=== PATIENT | female | born 1935 | race Caucasian/White ===

== ENCOUNTER 2019-04-29 17:52 | Inpatient (IN) | payer MEDICARE, OTHER ==
[~2019-04-29] VITALS: Ht 165.1 cm; Wt 54.4 kg
[2019-04-29 18:32] LABS: BASO # 0.1 (0.0-0.2); BASO % 0.8 % (0.0-2.0); EOS # 0.3 (0.0-0.7); EOS % 3.2 % (0-4.0); GRAN # 6.6 (1.4-6.5); GRAN % 76.3 % (42.2-75.2); HEMOGLOBIN 11.2 g/dl (12.5-16.0); LYMPH # 1.1 (1.2-3.4); LYMPH % 12.9 % (20.0-51.0); MEAN CELL VOLUME 102 fl (80.0-100.0); MEAN CORPUSCULAR HEMOGLOBIN 34 pg (27.0-31.0); MEAN CORPUSCULAR HGB CONC 33 g/dl (33.0-37.0); MONO # 0.5 (0.1-0.6); PLATELET COUNT 153 K/mm3 (130-400); REDCELL DISTRIBUTION WIDTH-CV 13.2 % (11.5-14.5)
[2019-04-29 18:32] LABS: ALBUMIN 3.6 gm/dL (3.5-5.0); BILIRUBIN,TOTAL 0.4 mg/dL (0.0-1.0); CALCIUM 8.6 mg/dL (8.4-10.2); CREATININE, serum 1.14 (0.52-1.25); POTASSIUM 4.1 mmol/L (3.4-5.0); TOTAL PROTEIN 6.4 gm/dL (6.4-8.2)
[2019-04-29 18:35] LABS: HEMATOCRIT 33.7 % (37.0-47.0)
[2019-04-29 20:48] LABS: COLLECTION METHOD CATHETER
[2019-04-29] MEDS ORDERED: RT SPIRIVA18 MCG IH (20:52)
[2019-04-29 20:53] LABS: MUCOUS Present /lpf; PH 5 (5-8); SQUAMOUS EPITHELIAL 0-2 /hpf; URINE APPEARANCE Clear; URINE BACTERIA None Seen /hpf; URINE BILIRUBIN Negative (NEGATIVE); URINE BLOOD Negative (NEGATIVE); URINE COLOR Yellow; URINE GLUCOSE Negative (NEGATIVE); URINE KETONE Trace (NEGATIVE); URINE LEUKOCYTE ESTERASE Negative (NEGATIVE); URINE NITRATE Negative (NEGATIVE); URINE PROTEIN(semi-quant) Negative (NEGATIVE); URINE RBC 0-2 /hpf; URINE UROBILINOGEN Negative (NEGATIVE)
[2019-04-29] MEDS ORDERED: RT ALBUTER2.5 MG/0.5 IH (20:53)
[2019-04-29] MEDS ORDERED: NAMENDA 10MG TA10 MG PO (20:54)
[2019-04-29] MEDS ORDERED: PLAVIX 75MG TAB75 MG PO (20:54)
[2019-04-29] MEDS ORDERED: KAPSPARGO SPRIN25 MG PO (20:54)
[2019-04-29] MEDS ORDERED: CRESTOR20 MG PO (20:55)
[2019-04-29] MEDS ORDERED: ARICEPT10 MG PO (20:55)
[2019-04-29] MEDS ORDERED: ARICEPT ODT10 MG PO (20:55)
[2019-04-29] MEDS ORDERED: CELEBREX 200MG200 MG PO (20:56)
[2019-04-29] MEDS ORDERED: NITROSTAT0.4 MG/TAB SL (20:57)
--- NOTE | 2019-04-29 21:50 | NUR ---
RECEIVED FROM ED PER CART, 83 Y/O FEMALE WITH FRACTURED LEFT HIP. IS TEARFUL AND ASKING WHERE HER IS. IV SITE TO LEFT AC WITHOUT REDNESS OR SWELLING. DOES NOT KNOW WHERE SHE IS. LOMELI TO BSD WITH YELLOW URINE. TEDS AND SCDS PLACED ON PATIENT.
[2019-04-29 22:01] VITALS: BP 122/82; PULSE 71; TEMP 97.6
[2019-04-29] MEDS ORDERED: LOPRESSOR 225 MG/TAB PO (22:30)
--- NOTE | 2019-04-29 22:35 | NUR ---
MEDICATED WITH MORPHINE 2MG IVP FOR PAIN TO LEFT HIP. PATIENT REPEATS QUESTIONS OF WHERE SHE IS, WHERE HER IS AND IF SHE CAN GET UP TO URINATE. DOES NOT REORIENT WELL, ESPECIALLY REGARDING HER LOMELI CATHETER. BED ALARM ON, WILL MONITOR FOR CHANGES.
[2019-04-30] VITALS (12 sets, daily range): BP systolic 98–135; BP diastolic 49–74; PULSE 66–87; TEMP 97.4–98.4
--- NOTE | 2019-04-30 00:30 | NUR ---
LEFT AC IV SITE CONTINUES TO OCCLUDE WITH PATIENT BENDING HER ARM. RESTARTED NEW IV SITE TO LEFT FOREARM WITH #20G INSYTE ON FIRST ATTEMPT. IVF CONNECTED TO NEW SITE AND INFUSING WITHOUT REDNESS OR SWELLING. MEDICATED WITH IV MORPHINE 2MG AT THIS TIME.
--- NOTE | 2019-04-30 02:12 | NUR ---
PATIENT TEARFUL, THINKS SHE NEEDS TO GET UP TO URINATE. HAS PAIN TO LEFT HIP WITH MOVEMENT, MEDICATED WITH IV MORPHINE 2MG NOW. REASSURED PATIENT THAT HER IS AT HOME AND WILL BE BACK IN THE MORNING TO SEE HER.
--- NOTE | 2019-04-30 04:00 | NUR ---
PATIENT SNORING AT THIS TIME. WILL WAIT FOR ATIVAN IF PATIENT BECOMES ANXIOUS.
--- NOTE | 2019-04-30 05:55 | NUR ---
PATIENT HAD LAB WORK DRAWN, BECAME ANXIOUS ABOUT WHERE SHE WAS AND WHERE HER WAS. ATIVAN GIVEN AT THIS TIME.
[2019-04-30 06:59] LABS: ALBUMIN 3.3 gm/dL (3.5-5.0); BILIRUBIN,TOTAL 0.3 mg/dL (0.0-1.0); CALCIUM 8.3 mg/dL (8.4-10.2); CREATININE, serum 1.01 (0.52-1.25); POTASSIUM 4.3 mmol/L (3.4-5.0); TOTAL PROTEIN 5.9 gm/dL (6.4-8.2)
[2019-04-30 08:08] LABS: BASO % 0.6 % (0.0-2.0); EOS # 0.1 (0.0-0.7); EOS % 1.6 % (0-4.0); GRAN # 5.1 (1.4-6.5); GRAN % 72.6 % (42.2-75.2); LYMPH % 14.3 % (20.0-51.0); MEAN CORPUSCULAR HGB CONC 32 g/dl (33.0-37.0); MEAN PLATELET VOLUME 10.1 fl (7.4-10.4); MONO # 0.8 (0.1-0.6); MONO % 10.6 % (1.7-9.3); PLATELET COUNT 140 K/mm3 (130-400); RED BLOOD COUNT 2.49 M/mm3 (4.10-5.30); REDCELL DISTRIBUTION WIDTH-CV 13.2 % (11.5-14.5)
[2019-04-30 08:22] LABS: HEMATOCRIT 26.7 % (37.0-47.0); HEMOGLOBIN 8.4 g/dl (12.5-16.0); MEAN CELL VOLUME 107 fl (80.0-100.0); MEAN CORPUSCULAR HEMOGLOBIN 34 pg (27.0-31.0)
--- NOTE | 2019-04-30 10:00 | NUR ---
Patient alert, oriented x1. Unable to comprehend questions asked. LLE with pulses intact, externally rotated. C/o pain when LLE moved. Able to feel sensation to LLE. No other s/s pain.
--- NOTE | 2019-04-30 11:35 | NUR ---
Patient to surgery with surgical staff at this time.
--- NOTE | 2019-04-30 13:55 | NUR ---
MEREDITH met with the patient's , Adrian to complete initial assessment. The patient was in surgery. The patient and her live in [place]. The patient has a cane and before this hospitalization the patient was independent with ADLs. The patient's PCP is Dr. Padron in [place] and patient receives medications from [facility] or [facility] with no difficulties. The patient does not have advanced directives in the EMR but Adrian reports they are completed and provided a copy to hospital staff. The patient may be needing care home stay. MEREDITH provided Medicare.gov's list of SNFs. The patient's chose 1)[facility] 2) [facility] in [place]. The patient's signed the patient choice form and placed in the chart. MEREDITH faxed referrals to both facilities. professional services consultant will continue to follow.
[2019-04-30 14:51] LABS: HEMATOCRIT 28.1 % (37.0-47.0); HEMOGLOBIN 8.9 g/dl (12.5-16.0)
[2019-05-01] VITALS (10 sets, daily range): BP systolic 99–153; BP diastolic 44–87; PULSE 61–115; TEMP 97.7–98
--- NOTE | 2019-05-01 01:05 | NUR ---
Patient noted to be confused. Alert, but not oriented. At one point patient stated, "And who am I?" Attempted to reorient with no success. Patient would grimace when moving around in the bed. PRN pain medication given. Noted to be effective. Before pain medication was given patient was pulling at IV line and quiros catheter. Quiros draining clear yellow urine. IV fluids to left forearm. Will continue to monitor patient.
[2019-05-01 08:02] LABS: HEMATOCRIT 21.5 % (37.0-47.0); HEMOGLOBIN 6.9 g/dl (12.5-16.0)
[2019-05-01 08:05] LABS: CALCIUM 8.4 mg/dL (8.4-10.2); CREATININE, serum 0.91 (0.52-1.25); POTASSIUM 3.8 mmol/L (3.4-5.0)
--- NOTE | 2019-05-01 08:44 | NUR ---
MEREDITH contacted Isha at [facility] for an update on the status of referral. Isha reports that they would not be able to accept at this time, due to being full. She anticipates them being full tomorrow too. MEREDITH awaiting [facility]'s screen. SW to update the patient's and will continue to follow.
--- NOTE | 2019-05-01 09:52 | NUR ---
PATIENT CONSFUSED AND PULLED IV SITE OUT OF LFA. ASSISTED BACK UP IN BED AND REPOSITIONED FOR COMFORT. DRESSED LEFT ARM. THERAPY WORKING WITH PATIENT AT THIS TIME.
--- NOTE | 2019-05-01 15:51 | NUR ---
Natalia, at [facility], reports that they are able to accept the patient; but not until . SW informed the patient's Salima DURAN. SW to inform the patient's and will continue to follow.
--- NOTE | 2019-05-01 18:06 | NUR ---
PT PULLED OUT IV DURING BLOOD INFUSION. LOMELI CATHERTER DISCONTINUED PER ORDERS. PT TOLERATED WELL. ATTEMPTED IV START X2 UNSUCESSFUL. ROLL FORMER IVETTE CONTACTED AND WILL ATTEMPT RESTART.
[2019-05-01 18:39] LABS: FOLATE (FOLIC ACID) 8.4 ng/mL (7.0-31.4)
--- NOTE | 2019-05-01 19:14 | NUR ---
REPORT TO JACQUELYN GAGE. BLOOD COMPLETE. PT TOLERATED WELL.
[2019-05-01 21:20] LABS: HEMATOCRIT 25.2 % (37.0-47.0); HEMOGLOBIN 8.3 g/dl (12.5-16.0)
[2019-05-02] VITALS (7 sets, daily range): BP systolic 105–140; BP diastolic 51–68; PULSE 69–89; TEMP 97.6–98.1
--- NOTE | 2019-05-02 01:40 | NUR ---
PATIENT DOING WELL TONIGHT. ALERT BUT CONFUSED. APPEARS TO BE MILDLY DISTRESSED AND ATTEMPTS TO GET OUT OF BED THROUGHOUT THE BEGINNING OF SHIFT. REMOVES MITTS AND IS CONSISTENTLY UNDRESSING SELF. HS SEROQUEL GIVEN ALONG WITH SCHEDULED MEDICATIONS AND PATIENT IS NOW RESTING COMFORTABLY WITHOUT ISSUE. ATTEMPTED TO GET OUT OF BED TO BEDSIDE COMMODE. PATIENT DID NOT VOID. BLADDER SCANNED AT 0000 AND HAD 421 IN BLADDER. ORDERS PER DOCTOR POELL TO STRAIGHT CATH FOR TONIGHT. STRAIGHT CATH AT 0100, WITH ASSISTANCE FROM MARLENE GAGE. 475 ML CLEAR YELLOW URINE OUT. NO FURTHER NEEDS AT THIS TIME. WILL CONTINUE TO MONITOR.
[2019-05-02 06:45] LABS: MEAN CORPUSCULAR HGB CONC 33 g/dl (33.0-37.0); MEAN PLATELET VOLUME 10.3 fl (7.4-10.4); PLATELET COUNT 140 K/mm3 (130-400); RED BLOOD COUNT 2.37 M/mm3 (4.10-5.30); REDCELL DISTRIBUTION WIDTH-CV 17.4 % (11.5-14.5)
[2019-05-02 06:47] LABS: HEMATOCRIT 22.9 % (37.0-47.0); HEMOGLOBIN 7.6 g/dl (12.5-16.0); MEAN CELL VOLUME 97 fl (80.0-100.0); MEAN CORPUSCULAR HEMOGLOBIN 32 pg (27.0-31.0)
[2019-05-02 07:15] LABS: CREATININE, serum 0.95 (0.52-1.25); POTASSIUM 3.5 mmol/L (3.4-5.0)
--- NOTE | 2019-05-02 11:30 | NUR ---
Patient confusion seems to be getting better today. She does not complain of pain unles moving. She keeps forgetting that she had surgery on her hip. Her is here. Tylenol given for pain. Patient got up to the BSC and was able to void. No other changes at this time. Call light within reach. Bedalarm on.
--- NOTE | 2019-05-02 14:28 | NUR ---
The patient is to tentatively be able to discharge tomorrow, 05/03. MEREDITH contacted and faxed updates to Natalia at [facility]. Natalia reports that they would be able to provide transport for the patient at 1130. MEREDITH informed the patient's PA-CSalima. MEREDITH to inform the patient's and will continue to follow.
--- NOTE | 2019-05-02 18:30 | NUR ---
Patients is no longer trying to crawl out of bed or yelling for help. She has been up few times to the bathroom. She is walking around. Denies nausea. She is having pain when walking but otherwise no complaints. No other changes at this time. Call light within reach. Bed alarm on.
[2019-05-03 04:00] VITALS: BP 142/62; PULSE 72; TEMP 97.9
--- NOTE | 2019-05-03 04:31 | NUR ---
Patient up to the bathroom with 1A from staff and walker. Tolerates this well. Taking Tylenol PRN for pain. Dressing changed to left hip this shift. Incision sites remain free from redness, drainage, or swelling. Noted to be short of breathe when walking back from the bathroom, but recovers quickly. Continues to be confused and bed alarm is on. Will continue to monitor.
[2019-05-03 07:06] LABS: BASO % 0.5 % (0.0-2.0); EOS # 0.2 (0.0-0.7); EOS % 3.7 % (0-4.0); GRAN # 4.9 (1.4-6.5); GRAN % 74.1 % (42.2-75.2); HEMATOCRIT 25.8 % (37.0-47.0); HEMOGLOBIN 8.5 g/dl (12.5-16.0); LYMPH # 0.9 (1.2-3.4); LYMPH % 14.4 % (20.0-51.0); MEAN CELL VOLUME 98 fl (80.0-100.0); MEAN CORPUSCULAR HEMOGLOBIN 32 pg (27.0-31.0); MEAN CORPUSCULAR HGB CONC 33 g/dl (33.0-37.0); MEAN PLATELET VOLUME 10.6 fl (7.4-10.4); MONO # 0.5 (0.1-0.6); PLATELET COUNT 133 K/mm3 (130-400); RED BLOOD COUNT 2.63 M/mm3 (4.10-5.30); REDCELL DISTRIBUTION WIDTH-CV 17.4 % (11.5-14.5)
[2019-05-03 07:24] LABS: CALCIUM 8.4 mg/dL (8.4-10.2); CREATININE, serum 1.01 (0.52-1.25); POTASSIUM 4.3 mmol/L (3.4-5.0)
[2019-05-03 08:00] VITALS: BP 116/56; PULSE 68; TEMP 97.8
--- NOTE | 2019-05-03 08:00 | NUR ---
Patient sitting up in recliner. Alert and partially oriented. Assessment complete. Gauze dressing x3 to left hip CDI. Andrey hose and SCDs to BLE. Assisted patient to restroom with walker and x 1 assist. Patient states she does not know why her left leg hurts, attempted to reoriente patient. Denies further needs at this time.
[2019-05-03] MEDS ORDERED: RT ALBUTER2.5 MG/0.5 IH (09:31)
[2019-05-03] MEDS ORDERED: OSCAL 500 TAB500 MG PO (09:33)
[2019-05-03] MEDS ORDERED: GOOD NEIGH1200 MG/15 PO (09:33)
[2019-05-03] MEDS ORDERED: ASPI325T6 PO (09:33)
[2019-05-03] MEDS ORDERED: VITAMIN C500 MG PO (09:34)
[2019-05-03] MEDS ORDERED: DUO-KAPS1 CAP PO (09:34)
[2019-05-03] MEDS ORDERED: B-121000 MCG PO (09:34)
[2019-05-03] MEDS ORDERED: PROTONIX 40MG T40 MG PO (09:35)
[2019-05-03] MEDS ORDERED: NORCO 325 MG-51 TAB PO (09:36)
[2019-05-03] MEDS ORDERED: TYLENOL 325MG325 MG PO (09:36)
--- NOTE | 2019-05-03 09:54 | NUR ---
The patient is to discharge today, 05/03, to [facility] for a skilled stay. Transportation was scheduled for 1130, via [facility]. MEREDITH informed the patient, patient's , son, and RN. They were all in agreeance to the time. MEREDITH also presented and explained the IM form to the patient's . The patient's verbalized understanding, signed, and he was provided a copy. No additional needs at this time.
[2019-05-03 10:23] VITALS: BP 116/56; PULSE 68; TEMP 97.8
--- NOTE | 2019-05-03 11:12 | NUR ---
First visit from the artist's manager. No needs right now.
--- NOTE | 2019-05-03 11:30 | NUR ---
Patient complaining that her left leg hurts, unable to score pain, patient just states that her leg "hurts really bad. Medication given per orders.
--- NOTE | 2019-05-03 12:00 | NUR ---
Patient discharging to [facility] in [place]. Report called to Flora GAGE. Assisted patient to dress and into wheelchair. Denies further needs at this time.
== END 2019-05-03 12:00 | DRG 481 ==
LOC: COL.ER 17:52 → SURG 19:44
PROVIDERS: Emergency Medicine; Nurse Anesthetist, Certified Registered; Nurse Practitioner Family; Orthopaedic Surgery; Physician Assistant; ADMIT Internal Medicine
PROC: 0QH736Z Insertion of Intramedullary Internal Fixation Device into Left Upper Femur, Percutaneous Approach (ICD-10-PCS; principal; 2019-04-30 12:00)
DX: S72.142A Displaced intertrochanteric fracture of left femur, initial encounter for closed fracture (principal); D62 Acute posthemorrhagic anemia; F03.90 Unspecified dementia, unspecified severity, without behavioral disturbance, psychotic disturbance, mood disturbance, and anxiety; I25.10 Atherosclerotic heart disease of native coronary artery without angina pectoris; J44.9 Chronic obstructive pulmonary disease, unspecified; I10 Essential (primary) hypertension; M19.90 Unspecified osteoarthritis, unspecified site; D64.9 Anemia, unspecified; I95.9 Hypotension, unspecified; W00.0XXA Fall on same level due to ice and snow, initial encounter; Y93.9 Activity, unspecified; Z87.891 Personal history of nicotine dependence; I25.2 Old myocardial infarction; Z95.818 Presence of other cardiac implants and grafts
CPT/HCPCS: 99222-AI; 99231-AI; 99239; A9284; C1713; C1769; J0690; J2060; J2270; J2405; J2704; J2795; J3010; J7030; P9016